=== PATIENT | male | born 1950 | race Caucasian/White ===

== ENCOUNTER 2019-10-09 00:04 | Outpatient (CLI) | payer MEDICARE, SELFPAY ==
[2019-10-09 18:58] LABS: SARS-CoV-2 RNA PCR Negative
== END 2019-10-09 00:05 | disposition home or self-care (01) ==
LOC: ANHCOVIDDT 00:04
PROVIDERS: PCP Family Medicine; Visit Provider Plastic Surgery
DX: Z01.812 Encounter for preprocedural laboratory examination (principal); Z20.828 Contact with and (suspected) exposure to other viral communicable diseases
CPT/HCPCS: 87635; C9803; U0003

== ENCOUNTER 2019-10-11 00:46 | Day surgery (SDC) | payer MEDICARE, SELFPAY ==
[2019-10-04 11:50] VITALS: BMI 22.5
--- NOTE | 2019-10-10 14:08 | HP_ITS ---
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 HISTORY: The patient is 69. He presented with concern for both of these. The nasal lesion is approximately 5 mm in diameter and is brown, firm, crusted and elevated on a slightly fleshy base. No biopsy has been done. A lesion on the clavicle is a healed shave biopsy site at this time. We are scheduling excision of both of these, frozen section will be used on both. He is aware that there will be scarring, may be infection, bruising, hematoma, and pain. He would like to proceed. He has requested MAC anesthetic for this. ALLERGIES: INCLUDES NO KNOWN ALLERGIES TO MEDICATIONS. MEDICATIONS: Current medications include, 1. [id number] Nexium. 2. Finasteride. PRIOR SURGERIES: Include excision of basal cell carcinoma in 2017. He is a nonsmoker. REVIEW OF SYSTEMS: Shows he has some hearing loss and some dry eye problems. FAMILY HISTORY: Noncontributory. SOCIAL HISTORY: Lives in [place]. He is retired, but he worked for [employer]. PHYSICAL EXAMINATION: GENERAL: He is an alert, cooperative gentleman. He is 6 feet 3 inches and weighs 185 pounds. He is in no distress. HEENT: Reveals a lesion on the right side of his nose. There is no palpable adenopathy. He has a surgical scar in his nose from a prior basal cell excision. CHEST: Clear to auscultation. HEART: Regular rate and rhythm by palpation. ABDOMEN: Soft and nontender. EXTREMITIES: Normal. SKIN: Reveals the lesional biopsy site on the left clavicle. 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 PLAN: Excision of both of these in the operating room with MAC anesthetic. Frozen section for both. D I MT: Doris FRY
[2019-10-11 06:56] VITALS: BP 128/75; PULSE 53; RESP 20; TEMP 36.1; O2SAT 100
--- NOTE | 2019-10-11 07:35 | WPDHPUPDATE1 ---
History and Physical Update Update Date/Time: 10/11/19 07:35 History and Physical has been reviewed, including an updated exam of the patient. There are NO changes in the patient's condition. Risks, benefits, and alternatives have been discussed and questions answered. Patient agrees to proceed with procedure.
[2019-10-11] MEDS: LACTATED RINGERS 1,000 ML 30 ML IV CONT ×2 (07:50→11:00)
--- NOTE | 2019-10-11 08:08 | SUR.PREOP ---
0740-PT AWARE SURGEON IS DELAYED ~60 MINUTES BY EMERGENT CASE. [id number] WITH RE:SURGERY DELAY OF ~60 MINUTES.
--- NOTE | 2019-10-11 08:51 | WPDANESEPPF ---
Anes - Initial Pre Proc Eval Procedure: Operation Date: 10/11/19 09:00 Proposed Procedures p Excision Of Neoplasm Unspecified Behavior Right Nose, Excision Of Lesion Left Clavicle With Frozen Section - Uri Scott MD Date/Time: 10/11/19 08:51 Surgeon: Uri Scott MD Pre Op Diagnosis: neoplasm unspecified behavior of right nose, Patient Data Age: 69 Gender: M Height: 6 ft 3 in Weight: 81.35 kg Last Vital Signs Temp 36.1 C L 10/11/19 06:56 Pulse 53 L 10/11/19 06:56 Resp 20 10/11/19 06:56 BP 128/75 10/11/19 06:56 Pulse Ox 100 10/11/19 06:56 Allergies Allergy/AdvReac Type Severity Reaction Status Date / Time No Known Allergies Allergy Unverified 10/11/19 08:04 Home Medications Medication Instructions Recorded Confirmed Type esomeprazole magnesium [Nexium] 20 mg PO HS 10/04/19 10/11/19 History finasteride 5 mg PO HS 10/04/19 10/11/19 History triamcinolone-dimethicone See Rx Instructions .ROUTE .COMPLEX 10/04/19 10/04/19 History Patient hx anesthesia problems: none Family hx anesthesia problems: none PMFSH Social History Social History Smoking status: Former smoker Smoking end date: 05/02/94 Alcohol intake: current Anes - Eval Final PreProcedure Day of Procedure 10/11/19 08:51 Patient weight: normal Heart: regular rate and rhythm Lungs: clear to auscultation Airway: Mallampati scale class II Neurological: alert and oriented Last oral intake: >/= 8 hours ASA classification: II Emergent: no Anesthetic plan: proceed Anesthesia type and monitoring: general GIVS and standard monitoring Informed Consent: The patient's anesthetic plan and its attendant risks and benefits were discussed with the patient/family/POA. Questions were solicited and answers provided to the satisfaction of the patient/family/POA.
[2019-10-11] MEDS: LIDO 1%/EPINEPHRINE 1:100,000 20 ML VIAL 6 ML INFILTRATE (09:49)
--- NOTE | 2019-10-11 10:53 | SUR.OPER ---
EBL:5cc
--- NOTE | 2019-10-11 10:55 | PM.OP ---
Procedure Note - Brief Procedure Note - Brief Date of procedure: 10/11/19 Pre-op diagnosis: neoplasm unspecified behavior of right nose, Neoplasm of unspecified bahavior right nose. Neoplasm of uncertain bahavior left calvicle. Procedure performed: 0.9 cm excisionof neoplasm of right side of nose with FS and intermediate repair 1.5 cm. 1.8 cm excision of neoplasm of left clavicle wieth FS and intermediate repair 4.0 cm. Anesthesia: MAC Surgeon: Uri Scott MD Estimated blood loss (mL): 3 Drains: No Packing: No Pathology: yes Disposition: same day
[2019-10-11 11:00] VITALS: BP 112/63; PULSE 54; RESP 12; O2SAT 99
[2019-10-11 12:10] VITALS: BP 140/71; PULSE 53; RESP 12
--- NOTE | 2019-10-11 12:26 | SUR.PHASEII ---
1220 spoke with spouse and updated on pt condition, on her way here
--- NOTE | 2019-10-11 12:36 | P.OP_ITS ---
Procedure Note - Detailed Date of procedure: 10/11/19 Pre-op diagnosis: neoplasm unspecified behavior of right nose, Neoplasm of uncertain behavior left clavicle Neoplasm of unspecified behavior right side of nose Post-op diagnosis: same Procedure performed: 0.9 cm excision of neoplasm of unspecified behavior right side of nose with frozen section and intermediate repair 1.5 cm 1.8 cm excision of neoplasm of uncertain behavior left clavicle frozen section and intermediate repair 4 cm Description of procedure: The sites were marked on the patient's skin at the left clavicle and right side of nose as he was in the holding area. He was taken to the operating room and placed supine on the operating table. A time- out was held and confirmed and he was given IV sedation. The sites were prepped and draped in usual fashion. They were marked for excision. They were infiltrated with 1% lidocaine with epinephrine. The biopsy site on the left clavicle was faint we identified 2 areas that appeared similar being slightly pink and shiny. These were close together and we encompassed both with a single excision. A suture tag marked the end most near the neck. That tissue was sent to frozen section and the pathologist reports scar but no identifiable tumor. The lesion from the nose was also sent and the diagnosis was similar. The operated site on the left clavicle was closed without undermining it requir ed 4-0 intradermal Vicryl running suture. Glue was applied over that. The site on the right side of the nose was closed with intradermal 4-0 Vicryl and running 5 0 nylon. The patient is discharged home with instructions in wound care and follow-up. No prescriptions were given. Anesthesia: MAC Surgeon: Uri Scott MD
== END 2019-10-11 12:35 | disposition home or self-care (01) ==
PROVIDERS: PCP Family Medicine; Visit Provider Plastic Surgery
PROC: (CPT 11441; principal; 2019-10-11 09:00)
DX: L30.9 Dermatitis, unspecified (principal); L82.1 Other seborrheic keratosis; Z85.828 Personal history of other malignant neoplasm of skin
CPT/HCPCS: 11441; 12051; 11402; 88305; 88331; A9270; J2704; J7120

== ENCOUNTER → 2020-08-08 09:42 | Outpatient (CLI) | payer MEDICARE, SELFPAY ==
--- NOTE | ~2020-08-08 | XR_ITS ---
EXAMINATION: XR_CERV2-3V_CR DATE: 08/08/2020 09:59 INDICATION: Cervical radiculopathy. Left arm weakness. TECHNIQUE: 4 views of cervical spine were obtained. COMPARISON: None. FINDINGS: There is hyperlordosis of lower cervical spine. Vertebral body heights are normal. There is mildly decreased disc height at C5-C6 and C6-C7. There is severe bilateral uncovertebral joint osteo arthritis at C5-C6 and C6-C7. There is multilevel mild facet joint osteoarthritis. There is no centra l canal stenosis or prevertebral soft tissue swelling. IMPRESSION: 1. Mild cervical spondylosis. Reviewed, dictated and finalized at location A.
== END ==
PROVIDERS: PCP Family Medicine; Visit Provider Family Medicine
DX: M47.22 Other spondylosis with radiculopathy, cervical region (principal)
CPT/HCPCS: 72040

== ENCOUNTER → 2021-02-10 13:24 | Outpatient (CLI) | payer MEDICARE, SELFPAY ==
--- NOTE | ~2021-02-10 | XR_ITS ---
XR toe 5th LT min 2V DATE: 02/10/2021 14:02 INDICATION: Left 4th and 5th toe pain TECHNIQUE: 3 views of 5th toe COMPARISON: 03/31/2010 left foot FINDINGS: There is a nondisplaced transverse fracture at the fused distal phalanx of the fifth toe. No other fracture or dislocation. IMPRESSION: Nondisplaced fracture at fused distal phalanx of fifth toe Reviewed, dictated and finalized at location B.
--- NOTE | ~2021-02-10 | XR_ITS ---
XR toe 4th LT min 2V DATE: 02/10/2021 14:02 INDICATION: Left fourth toe pain TECHNIQUE: 3 views COMPARISON: None FINDINGS: No fracture or dislocation, periosteal reaction or bone destruction. IMPRESSION: Negative Reviewed, dictated and finalized at location B. IMPRESSION: Negative
== END ==
PROVIDERS: PCP Family Medicine; Visit Provider Physician Assistant Medical
DX: S92.535D Nondisplaced fracture of distal phalanx of left lesser toe(s), subsequent encounter for fracture with routine healing (principal); X58.XXXD Exposure to other specified factors, subsequent encounter; M79.674 Pain in right toe(s)
CPT/HCPCS: 73660

== ENCOUNTER 2023-03-01 11:23 | Inpatient (IN) | payer MEDICARE, SELFPAY ==
--- NOTE | ~2023-03-01 | CT_ITS ---
EXAMINATION: CT brain wo con DATE: 03/02/2023 09:27 INDICATION: Seizure-like activity. TECHNIQUE: Computed tomography (CT) of the head was performed without intravenous contrast. The mA wa s adjusted according to patient size. Iterative reconstruction technique was employed. The dose-lengt h product was 681.00 mGy-cm. COMPARISON: None FINDINGS: There are scattered areas of low attenuation in the cerebral white matter, which is within normal limits for the patient's age. There is no intracranial hemorrhage, acute infarction, or abnor mal intracranial mass lesion. The ventricles are normal in size. There is mucosal thickening in the p aranasal sinuses. The orbits are normal. The mastoid air cells are normal. There is a lipoma in right frontal lateral scalp. IMPRESSION: 1. Normal aging brain. Reviewed, dictated and finalized at location E. IMPRESSION: 1. Normal aging brain.
--- NOTE | ~2023-03-01 | XR_ITS ---
EXAMINATION: XR chest 1V portable DATE: 03/01/2023 12:55 INDICATION: Fever TECHNIQUE: frontal view of the chest was obtained. COMPARISON: None FINDINGS: Subtle perihilar opacities in the left midlung zone. No pleural effusion or pneumothorax. Calcified r ight hilar lymph node consistent with old granulomatous disease. The cardiomediastinal silhouette is within normal limits for AP technique. IMPRESSION: 1. Subtle left perihilar opacities suspicious for pneumonia. Reviewed, dictated and finalized at location A.
[2023-03-01 11:21] VITALS: BP 131/76; PULSE 88; RESP 20; TEMP 39.6; O2SAT 98
--- NOTE | 2023-03-01 12:09 | ED.FEVER ---
HPI - Fever General Chief Complaint: Fever Stated Complaint: shaking - COVID + Time Seen by Provider: 03/01/23 12:08 Source: family History of Present Illness HPI Narrative: 72 years old white male history of Lewy body dementia, his mental status baseline is oriented to his name only. Tested positive for COVID yesterday, today was shaking too much and possible seizure with temperature 103. His daughter is telling me that patient been having seizure-like activity over 2 weeks, scheduled to see a neurologist at [facility] for EEG next week. Patient is DNR. Related Data Home Medications Medication Instructions Recorded Confirmed cyanocobalamin (vitamin B-12) 1,000 mcg PO DAILY 02/06/20 03/01/23 1,000 mcg capsule bimatoprost 0.01 % eye drops 1 drp EACH EYE DAILY 03/01/23 03/01/23 (Lumigan) melatonin 10 mg tablet 10 mg PO HS 03/01/23 03/01/23 quetiapine 25 mg tablet (Seroquel) 50 mg PO HS 03/01/23 03/01/23 sildenafil 100 mg tablet 100 mg PO DAILY PRN as needed 03/01/23 03/01/23 Allergies Allergy/AdvReac Type Severity Reaction Status Date / Time No Known Allergies Allergy Verified 03/01/23 11:57 Review of Systems Review of Systems: ROS unobtainable: Yes unobtainable due to mental status PMFSH Past Medical History Medical History Benign prostate hyperplasia COVID-19 Gastroesophageal reflux disease 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 Code status: Do not resuscitate. Smoking status: Former smoker Alcohol intake: never Substance use: current Substance use type: does not use Lack of Transportation: No Lack of Food: Never True Current Housing: I Have Housing Concerned About Future Housing: No Difficulty Paying Gas/Electric Bills: No Difficulty Paying for Meds: No Currently Unemployed: No Education: Master's Degree or Higher Additional living arrangements comments: [facility]. Additional occupation/education comments: Retired. Spiritual care concerns: No Exam Narrative: General appearance: Well-developed, well-nourished, restless, daughter is at the bedside Skin: Normal color, warm Head: Normocephalic, nontraumatic Eyes: Clear conjunctiva ENT: Oropharyngeal erythema Neck: Supple, nontender Chest and respiratory: Airway patent, no respiratory distress, no accessory muscle use Heart: Regular rate/rhythm Abdomen: Soft, nontender, no organomegaly, quiet bowel sounds Vascular: Normal peripheral pulses, normal capillary refill. Musculoskeletal: Normal range of motion, nontender back Neurologic: Alert and oriented to his name only Course Reevaluation(s) Reevaluation #1: More relaxed and calm after Tylenol, Toradol and IV fluid Date: 03/01/23 Time: 13:36 Vital Signs Vital signs: Vital Signs Temperature 39.6 C H 03/01/23 11:21 Pulse Rate 88 03/01/23 11:21 Respiratory Rate 20
--- NOTE | 2023-03-01 12:10 | ECG_ITS ---
Measurements Intervals [place] Rate: 91 P: 74 [place]: 147 QRS: 1 QRSD: 101 T: 40 QT: 352 QTc: 434 Interpretive Statements SINUS RHYTHM SUPRAVENTRICULAR BIGEMINY INCOMPLETE RIGHT BUNDLE BRANCH BLOCK BORDERLINE R WAVE PROGRESSION, ANTERIOR LEADS BASELINE ARTIFACT- I, II, III, AVR, AVL, AVF ABNORMAL ECG NO PREVIOUS ECG AVAILABLE FOR COMPARISON Electronically Signed On 03-02-2023 6:34:28 CDT by Marco Romo D.O.
[2023-03-01] MEDS: ACETAMINOPHEN 500 MG TABLET 1000 MG PO (12:32)
[2023-03-01] MEDS: SODIUM CHLORIDE 0.9% IV 1,000 ML 999 ML IV CONT (12:32)
[2023-03-01] MEDS: KETOROLAC 15 MG/ML VIAL (*BKC) IV PUSH (12:33)
[2023-03-01 12:44] LABS: Basophils Percent Auto 0.2 % (0.2-1.2); Eosinophils Percent Auto 0.1 % (0-4.4); Hematocrit 42.2 % (42.0-52.0); Hemoglobin 14.6 g/dL (14.0-18.0); Immature Granulocyte Absolute 0.01 K/mm3 (0.00-0.031); Immature Granulocyte Percent A 0.1 % (0-0.5); Lymphocytes Absolute Auto 0.42 K/mm3 (0.9-3.2); Lymphocytes Percent Auto 5.1 % (18.3-44.2); Mean Corpuscular HGB Conc 34.6 g/dl (32-36); Mean Corpuscular Hemoglobin 31.5 pg (26-34); Mean Corpuscular Volume 91.1 fl (80-100); Mean Platelet Volume 9.8 fl (7.4-10.4); Monocytes Absolute Auto 0.5 K/mm3 (0.1-0.6); Monocytes Percent Auto 5.7 % (2.6-8.5); Neutrophils Absolute Auto 7.3 K/mm3 (1.3-6.7); Neutrophils Percent Auto 88.8 % (45.5-73.1); Platelet Count Result 179 k/mm3 (150-375); Red Blood Count 4.63 M/mm3 (4.6-6.20); Red Cell Distribution Width 12.9 % (11.5-14.5); White Blood Count 8.2 K/mm3 (4.5-10.0)
[2023-03-01 12:55] LABS: Lactic Acid Reflex 1.6 mmol/L (0.7-2.0)
[2023-03-01 12:56] LABS: INR 0.9; Partial Thromboplastin Time 23.6 SECONDS (22.3-36.8); Prothrombin Time 12.7 Seconds (11.1-14.7)
[2023-03-01 12:59] LABS: Alanine Aminotransferase 31 U/L (6-50); Alkaline Phosphatase 77 U/L (38-126); Anion Gap 5 mmol/L (8-16); Aspartate Amino Transferase 41 U/L (17-59); Bilirubin,Total 1.2 mg/dL (0.2-1.3); Blood Urea Nitrogen 18 mg/dL (9-20); CRP 3.1 mg/dL (<1.0); Calcium 8.6 mg/dL (8.4-10.2); Carbon Dioxide 28 mmol/L (22-30); Chloride 100 mmol/L (98-107); Estimated CRCL calculation 87 ml/min; Estimated Glomerular Filt Rate > 60; Glucose 93 mg/dL (65-110); Potassium 4.1 mmol/L (3.4-5.0); Sodium 133 mmol/L (137-145)
[2023-03-01 13:30] VITALS: BP 127/67; PULSE 82; RESP 20; O2SAT 95
[2023-03-01 13:59] VITALS: PULSE 80; RESP 18; TEMP 37.9; O2SAT 97
[2023-03-01 14:34] LABS: Influenza A QL RT-PCR Negative (Negative); Influenza B QL RT-PCR Negative (Negative); RSV RNA, RT-PCR Negative (Negative); SARS-CoV-2 RNA PCR Positive (Negative)
--- NOTE | 2023-03-01 17:23 | ADMGEN ---
This patient, Bubba Finney, was admitted to Medical Room 340-01. Patient/family oriented to hospital policies and general routines including ID bracelet, bed and alarms, visiting hours, pain management, procedures, bathroom and other care routines, personal items, smoking policy, room service/diet, and visiting hours. Information on how to activate the Rapid Response Team has been discussed. Patient/Family are encouraged to report perceived risks to care and to ask questions if they do not understand what they are told or what they should do.
[2023-03-01 17:30] VITALS: BP 102/50; PULSE 70; RESP 18; TEMP 36.8; O2SAT 100
[2023-03-01] MEDS: SODIUM CHLORIDE 0.9% IV 1,000 ML 125 ML IV CONT (18:03)
[2023-03-01 20:00] VITALS: PULSE 62
--- NOTE | 2023-03-01 20:41 | PM.IMHP ---
H&P: HPI History of Present Illness Date/Time: 03/01/23 20:40 Chief Complaint: Shaking, fever, COVID. Narrative: This is a 72-year-old male with Lewy body dementia who presented to the emergency department via EMS from assisted living for evaluation shaking episodes and fever while COVID positive. He is not able to provide an accurate history and his daughter provides a majority of the following. Over the weekend he seemed to be in his usual state of health. Yesterday he was tested for COVID as is going around the facility and he tested positive though did not seem to be feeling unwell. Today however he spiked a temperature to 103? F and he was brought into the emergency department after staff noticed his legs buckle and he appeared to have a near fall. At that time he also had full body shaking concerning for seizure activity and they thought it would be best to send him to the ER for evaluation as the last several weeks he has had similar other episodes and they were concerned for possible seizures. In fact he has an upcoming appointment with his neurologist at [facility] for an EEG however that is not for another several weeks. Blood pressure has been stable since arrival. His SpO2 has been in the mid to high 90s on room air. He did test positive for SARS-CoV-2 by PCR. Labs were significant for a WBC count of 8.2, sodium 133, CRP 3.1. Chest x-ray shows subtle left perihilar opacity suspicious for pneumonia. I was asked to admit the patient in this setting for neurology consultation. Review of Systems Review of Systems: Unable to be obtained accurately given his dementia. He has had some sneezing while I was in the room. Daughter is unaware of any cough. Appetite has been okay. No reports of vomiting or diarrhea. 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 Code status: Do not resuscitate. Smoking status: Former smoker Alcohol intake: never Substance use: current Substance use type: does not use Lack of Transportation: No Lack of Food: Never True Current Housing: I Have Housing Concerned About Future Housing: No Difficulty Paying Gas/Electric Bills: No Difficulty Paying for Meds: No Currently Unemployed: No Education: Master's Degree or Higher Additional living arrangements comments: [facility]. Additional occupation/education comments: Retired. Spiritual care concerns: No Meds Home Medications and Allergies Home Medications Medication Instructions Recorded Confirmed Type cyanocobalamin (vitamin B-12) 1,000 mcg PO DAILY 02/06/20 03/01/23 History 1,000 mcg capsule Compression support stockings #1 ea 08/30/22 03/01/23 Rx rivastigmine 4.6 mg/24 hour 1 patch transdermal DAILY #30 ea 10/21/22 03/01/23 Rx transdermal patch clonazepam 0.5 mg tablet 0.25 mg PO QHS #90 tabs 11/08/22 03/01/23 Rx esomeprazole magnesium 20 mg 20 mg PO QHS #30 ea 02/24/23 03/01/23 Rx capsule,delayed release finasteride 5 mg tablet 5 mg PO QHS #30 tabs 02/24/23 03/01/23 Rx sertraline 100 mg tablet 100 mg PO DA
[2023-03-01 21:38] VITALS: BP 97/52; PULSE 60; RESP 18; TEMP 36.4; O2SAT 97
[2023-03-01] MEDS: KETOROLAC 30 MG/ML VIAL (*BKC) 15 MG IV PUSH (22:30)
[2023-03-02] VITALS: PULSE 65
[2023-03-02 00:58] LABS: Appearance Urine Clear (Clear); Bilirubin Urine Negative (Negative); Blood Urine Negative (Negative); Color Urine Dark Yellow (Yellow); Glucose Urine UA Negative (Negative); Ketones Urine Trace mg/dL (Negative); Leukocyte Esterase Ur Negative LEU/UL (Negative); Nitrate Urine Negative (Negative); Protein Urine Negative (Negative); Specific Grav Ur 1.026 (1.001-1.035)
[2023-03-02 01:13] LABS: Add Urine Microscopic? NO
[2023-03-02] MEDS: SODIUM CHLORIDE 0.9% IV 1,000 ML 125 ML IV CONT (02:05)
[2023-03-02 04:00] VITALS: PULSE 77
[2023-03-02 05:40] LABS: Hemoglobin 12.8 g/dL (14.0-18.0); Mean Corpuscular HGB Conc 33.7 g/dl (32-36); Mean Corpuscular Hemoglobin 31.4 pg (26-34); Mean Corpuscular Volume 93.4 fl (80-100); Mean Platelet Volume 9.4 fl (7.4-10.4); Platelet Count Result 166 k/mm3 (150-375); Red Blood Count 4.07 M/mm3 (4.6-6.20); Red Cell Distribution Width 13.1 % (11.5-14.5); White Blood Count 7.8 K/mm3 (4.5-10.0)
[2023-03-02 05:56] LABS: Alanine Aminotransferase 29 U/L (6-50); Alkaline Phosphatase 62 U/L (38-126); Anion Gap 1 mmol/L (8-16); Aspartate Amino Transferase 40 U/L (17-59); Blood Urea Nitrogen 19 mg/dL (9-20); CRP 6.7 mg/dL (<1.0); Calcium 7.8 mg/dL (8.4-10.2); Carbon Dioxide 27 mmol/L (22-30); Chloride 107 mmol/L (98-107); Estimated CRCL calculation 87 ml/min; Estimated Glomerular Filt Rate > 60; Glucose 91 mg/dL (65-110); Lactate Dehydrogenase 170 U/L (120-246); Sodium 135 mmol/L (137-145)
[2023-03-02 06:00] VITALS: BP 150/74; PULSE 55; RESP 21; TEMP 36.6; O2SAT 100
[2023-03-02] MEDS: SERTRALINE HCL 50 MG TABLET 100 MG PO (08:36)
[2023-03-02] MEDS: TAMSULOSIN HCL 0.4 MG CAPSULE PO (08:36)
[2023-03-02] MEDS: CYANOCOBALAMIN 1,000 MCG TABLET 1000 MCG PO (08:36)
[2023-03-02 08:45] VITALS: BP 160/87; PULSE 60; RESP 20; TEMP 36.8; O2SAT 100
--- NOTE | 2023-03-02 09:06 | PM.IMPN ---
Progress Note: A&P Assessment and Plan (1) COVID-19: Code(s): U07.1 - COVID-19 Status: Acute (2) Seizure-like activity: Code(s): R56.9 - Unspecified convulsions Status: Acute (3) Abnormal chest x-ray: Code(s): R93.89 - Abnormal findings on diagnostic imaging of other specified body structures Status: Acute (4) Lewy body dementia with behavioral disturbance: Code(s): G31.83 - Neurocognitive disorder with Lewy bodies; F02.81 - Dementia in other diseases classified elsewhere, unspecified severity, with behavioral disturbance Status: Acute Plan The patient presented to the emergency department via EMS for evaluation of fever and a ?shaking episode? which lasted upwards of a minute as per HPI. Labs, imaging, EKG, and all reports were personally reviewed. He has no history of seizures but over the last several weeks he has apparently demonstrated seizure-like activity. Brain CT has been ordered and neurology has been consulted for their opinion. Regarding his COVID, he has no oxygen requirement thus no indication for dexamethasone or remdesivir at this time. Chest x-ray shows possible pneumonia in the left lobe which could be related to COVID. White blood cell count is normal and his CRP is only mildly elevated 3.1. Hold on antibiotics at this time, pending procalcitonin. He looks a bit dry on exam and will be hydrated overnight. His home medications will be reviewed and resumed as appropriate. Subjective Date/time seen: 03/02/23 09:06 Interval history: No overnight events noted. No chest pain or shortness of breath. No nausea, vomiting or diarrhea. No fevers or chills. Review of Systems Review of Systems: 12 point review of systems was assessed and was negative except as noted in the HPI Exam Narrative: General: No acute distress, alert and oriented per baseline HEENT: Atraumatic, normocephalic, mucous membranes moist CV: Regular rate and rhythm, S1, S2 Lungs: Clear to auscultation bilaterally, no rales or crackles noted, no wheezes, good air entry Abdomen: Soft, nontender, nondistended Extremities: Normal to inspection Skin: No rashes noted, no lesions or wounds seen Psych: Euthymic, normal affect Objective Data Vital Signs Vital Signs: Vital Signs - 24 hr 03/01/23 11:21 03/01/23 13:30 03/01/23 13:59 Temperature 103.2 F H 100.2 F H Pulse Rate 88 82 80 Respiratory Rate 20 20 18 Blood Pressure 131/76 127/67 Pulse Oximetry 98 95 97 Oxygen Delivery Room Air 03/01/23 17:30 03/01/23 21:38 03/01/23 20:00 Temperature 98.2 F 97.5 F L Pulse Rate 70 60 62 Respiratory Rate 18 18 Blood Pressure 102/50 L 97/52 L Pulse Oximetry 100 97 Oxygen Delivery 03/02/23 00:00 03/02/23 04:00 03/02/23 06:00 Temperature 97.9 F Pulse Rate 65 77 55 L Respiratory Rate 21 H Blood Pressure 150/74 H Pulse Oximetry 100 Oxygen Delivery 03/02/23 08:45 Temperature 98.2 F Pulse Rate 60 Respiratory Rate 20 Blood Pressure 160/87 H Pulse Oximetry 100 Oxygen Delivery Intake/Output Intake/Output: Intake & Output 02/27/23 02/28/23 03/01/23 03/02/23 23:59 23:59 23:59 23:59 Intake Total 1240 1400 Output Total 350 Balance 1240 1050 Meds/Results Medications: Active Medications Generic Name Dose Route Start Last Admin Trade Name Freq PRN Reason Stop Dose Admin Acetaminophen 650 mg 03/01/23 13:42 Acetaminophen 325 Mg Tablet PO Q4H PRN Mild Pain (1-3) or Fever Clonazepam 0.25 mg 03/02/23 21:00 Clonazepam (*Crx) 0.25 Mg Tablet PO QHS NADJA Cyanocobalamin 1,000 mcg 03/02/23 09:00 03/02/23 08:36 Cyanocobalamin 1,000 Mcg Tablet PO 1,000 mcg DAILY NADJA Administration Finasteride 5 mg 03/02/23 21:00 Finasteride 5 Mg Tablet PO QHS NADJA Sodium Chloride 1,000 mls @ 125 mls/hr 03/01/23 13:50 03/02/23 02:05 Normal Saline Iv IV CONT 125 mls/hr .Q8H NADJA Administration Ket
--- NOTE | 2023-03-02 11:18 | WPDNEURCNPN ---
Assessment and Plan Assessment and plan (1) Lewy body dementia with behavioral disturbance: Code(s): G31.83 - Neurocognitive disorder with Lewy bodies; F02.81 - Dementia in other diseases classified elsewhere, unspecified severity, with behavioral disturbance Status: Acute (2) Seizure-like activity: Code(s): R56.9 - Unspecified convulsions Status: Acute Plan 1. Ongoing dementia of Lewy body type. 2. Question regarding seizures is scheduled to have the EEG here today over the next several weeks 3 medication to be continued as such and discussed with the family Consult date: 03/02/23 HPI: Bubba Finney is a 72 year old maleAdmitted to the hospital through the emergency room for the complains of shaking in addition to history covid positive. Patient carries the diagnosis of Lewy body dementia with his mental status baseline is orientation to his name only he tested positive yesterday for covid and the day of admission he was shaking too much with the possibility of seizures with temperature being 103. But the daughter mentioned to the ER personnel that he has been experiencing seizure-like activity over more than 2 weeks. And was scheduled to see the neurologist at [facility] to have the EEG next week and he also carries the DNR status his medications included only B12 1000 mcg/ml and he is not allergic to any medication. He does have ongoing history of benign prostatic hyperplasia, is currently alcohol intake positive but he is a former smoker initial exam in the emergency room was grossly nonfocal though he was alert and oriented to his name only. Initial vital signs were stable except temperature of 39.6? 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 Code status: Do not resuscitate. Smoking status: Former smoker Alcohol intake: never Substance use: current Substance use type: does not use Lack of Transportation: No Lack of Food: Never True Current Housing: I Have Housing Concerned About Future Housing: No Difficulty Paying Gas/Electric Bills: No Difficulty Paying for Meds: No Currently Unemployed: No Education: Master's Degree or Higher Additional living arrangements comments: [facility]. Additional occupation/education comments: Retired. Spiritual care concerns: No Meds Home Medications and Allergies Home Medications Medication Instructions Recorded Confirmed Type cyanocobalamin (vitamin B-12) 1,000 mcg PO DAILY 02/06/20 03/01/23 History 1,000 mcg capsule Compression support stockings #1 ea 08/30/22 03/01/23 Rx rivastigmine 4.6 mg/24 hour 1 patch transd
[2023-03-02] MEDS: levETIRAcetam 500 MG TABLET PO (12:46)
[2023-03-02 14:35] VITALS: BP 141/72; PULSE 78; RESP 16; TEMP 37; O2SAT 100
--- NOTE | 2023-03-02 14:49 | PM.DS ---
DS: Admitting Diagnosis Discharge Date 03/02/23 Admitting Diagnosis Seizure DS: Discharge Diagnosis Discharge Diagnosis (1) COVID-19: Code(s): U07.1 - COVID-19 Status: Acute (2) Seizure-like activity: Code(s): R56.9 - Unspecified convulsions Status: Acute (3) Abnormal chest x-ray: Code(s): R93.89 - Abnormal findings on diagnostic imaging of other specified body structures Status: Acute (4) Lewy body dementia with behavioral disturbance: Code(s): G31.83 - Neurocognitive disorder with Lewy bodies; F02.81 - Dementia in other diseases classified elsewhere, unspecified severity, with behavioral disturbance Status: Acute Plan The patient presented to the emergency department via EMS for evaluation of fever and a ?shaking episode? which lasted upwards of a minute as per HPI. Labs, imaging, EKG, and all reports were personally reviewed. He has no history of seizures but over the last several weeks he has apparently demonstrated seizure-like activity. Brain CT has been ordered and neurology has been consulted for their opinion. Regarding his COVID, he has no oxygen requirement thus no indication for dexamethasone or remdesivir at this time. Chest x-ray shows possible pneumonia in the left lobe which could be related to COVID. White blood cell count is normal and his CRP is only mildly elevated 3.1. Hold on antibiotics at this time, pending procalcitonin. He looks a bit dry on exam and will be hydrated overnight. His home medications will be reviewed and resumed as appropriate. DS: Summary Hospital Course Hospital Course: 72-year-old male with Lewy body dementia who presented to the emergency department via EMS from assisted living for evaluation shaking episodes and fever while COVID positive. Long discussion with the son patient is the resident at the [facility] sees trying to schedule him for the ambulatory EEG if he goes back from here to the [facility] and has another episode they will again send him to the and [facility] but not to the [facility], considering all this pros and cons I started him on the Keppra 500 mg twice a day with instruction to the side can be discharged today to the [facility] he can keep a scheduled appointment at [facility] for ambulatory EEG because otherwise [facility] will only sent him to the local facility to the ER he understood? satisfied and patient will be discharged today. Symptoms do not recur. Patient was discharged in stable condition with close outpatient follow-up. Please see above and med rec for details. Time Spent with Patient Time attestation: Total time spent providing and/or coordinating discharge services: Exam Narrative: General: No acute distress, alert and oriented per baseline HEENT: Atraumatic, normocephalic, mucous membranes moist CV: Regular rate and rhythm, S1, S2 Lungs: Clear to auscultation bilaterally, no rales or crackles noted, no wheezes, good air entry Abdomen: Soft, nontender, nondistended Extremities: Normal to inspection Skin: No rashes noted, no lesions or wounds seen Psych: Euthymic, normal affect DS: Data Data Completed and Pending Labs on day of discharge: Labs from last 24 hours 03/02/23 03/02/23 05:34 00:46 WBC 7.8 RBC 4.07 L Hgb 12.8 L Hct 38.0 L MCV 93.4 MCH 31.4 MCHC 33.7 RDW 13.1 Plt Count 166 MPV 9.4 Sodium 135 L Potassium 4.0 Chloride 107 Carbon Dioxide 27 Anion Gap 1 L BUN 19 Creatinine 0.80 Estim Creat Clear Calc 87 Estimated GFR > 60 Glucose 91 Calcium 7.8 L Ferritin 127.00 Total Bilirubin 1.0 AST 40 ALT 29 Alkaline Phosphatase 62 Lactate Dehydrogenase 170 C-Reactive Protein 6.7 H Total Protein 5.0 L Albumin 3.0 L Urine Color Dark yellow Urine Appearance Clear Urine pH 6.0 Ur Specific [place] 1.026 Urine Protein Negative Urine Glucose (UA) Negative Urine [place]
--- NOTE | 2023-03-02 15:33 | WPDNEUROLOGY ---
Neurology EEG Report General Information Date of Study: 03/02/23 TEST eeg DIAGNOSIS Seizure-like activity CONDITION OF RECORDING awake drowsy and sleep EEG NUMBER [id number] CLINICAL HISTORY patient has ongoing dementia of Lewy bodies type, and question has been raised regarding the possibility of seizures , patient is scheduled to return to his neurologist at [facility] were planning to have ambulatory EEG. EEG DESCRIPTION Background rhythm consists of low to medium voltage 6 to 7 hertz per 2nd theta admixed and superimposed by low-voltage 15 to 18 hertz per 2nd beta activity. Bilateral symmetrical sleep activity is noted without any evidence of asymmetry. In addition to the multiple movement artifacts. Hyperventilation not done. Photic stimulation not done. Non paroxysmal. Nonfocal. Nonlateralizing. IMPRESSION Mildly abnormal record due to the presence of slowing of the background rhythm but there is no evidence of any paroxysmal activity in this particular tracing which is somewhat compromised by the multiple muscle artifacts as well.
== END 2023-03-02 15:15 | disposition other institution (70) | DRG 100 ==
LOC: ANHED 13:42 → ANH3MEDSUR 14:30 → ANH3MED 16:14
PROVIDERS: Admitting Provider Physician Assistant; Emergency Provider Emergency Medicine; PCP Family Medicine; Visit Provider Student in an Organized Health Care Education/Training Program
DX: R56.9 Unspecified convulsions (principal); U07.1 COVID-19; G31.83 Neurocognitive disorder with Lewy bodies; F02.80 Dementia in other diseases classified elsewhere, unspecified severity, without behavioral disturbance, psychotic disturbance, mood disturbance, and anxiety; N40.0 Benign prostatic hyperplasia without lower urinary tract symptoms; L11.1 Transient acantholytic dermatosis [Grover]; K21.9 Gastro-esophageal reflux disease without esophagitis; Z66 Do not resuscitate
CPT/HCPCS: 36415; 70450; 71045; 80053; 81003; 82728; 83605; 83615; 85025; 85027; 85610; 85730; 86140; 87040; 87637; 93005; 95816; 96361; 96374; 99285; A9270; J1885; J7030

== ENCOUNTER 2024-03-04 23:38 | Emergency (ER) | payer MEDICARE, SELFPAY ==
--- NOTE | ~2024-03-04 | CT_ITS ---
CT head without contrast Indication: Head injury COMPARISON: 123 Technique: Serial scans were obtained through the brain without the administration of contrast. Dose reduction technique was used on this scan by utilizing automated exposure control and iterative recon struction technique. The dose-length product (DLP) was 756.67 mGy-cm. Findings: There is no evidence of intracranial hemorrhage, mass lesion, or acute infarct. The ventri cles and subarachnoid spaces are dilated, consistent with mild to moderate atrophy. There is no evid ence of edema, mass effect or midline shift. The visualized paranasal sinuses and mastoid air cells are clear. Impression: No intracranial hemorrhage, mass, or acute infarct. Generalized atrophic change, as above. Reviewed, dictated and finalized at location . GATIONIST Impression: No intracranial hemorrhage, mass, or acute infarct. Generalized atrophic change, as above.
--- NOTE | ~2024-03-04 | CT_ITS ---
Noncontrast CT scan of the cervical spine Technique: Multiple contiguous axial [address] images of the cervical spine were obtained and rec onstructed in 2D sagittal and coronal planes on the acquisition scanner. Dose reduction technique was used on this scan by utilizing automated exposure control, adjustment of the mA and/or kV according to patient size. The dose-length product (DLP) was 571.19 mGy-cm. Clinical History: Pain Findings: No fractures or dislocations. There is moderate to advanced degenerative disc change at C6 -C7. There is moderate degenerative disc narrowing at C5-C6. There are scattered mild facet joint deg enerative change in the cervical spine. Probable bilateral neural foraminal narrowing at C5-C6 and C6 -C7. No prevertebral soft tissue swelling. Impression: No fracture or subluxation of the cervical spine. Reviewed, dictated and finalized at [facility]. WIRER Impression: No fracture or subluxation of the cervical spine.
--- NOTE | ~2024-03-04 | XR_ITS ---
Left ankle Technique: AP, oblique, and lateral views were obtained. Clinical History: Pain Findings: No acute fracture or dislocation is seen. Osseous alignment is anatomic. Ankle mortise and other visualized joint spaces are preserved. Soft tissues are otherwise unremarkable. Impression: Unremarkable left ankle. Reviewed, dictated and finalized at location . MECHANIC APPRENTICE Impression: Unremarkable left ankle.
[2024-03-04 23:41] VITALS: BP 183/86; PULSE 61; RESP 17; TEMP 36.6; O2SAT 100
--- NOTE | 2024-03-05 00:50 | ECG_ITS ---
Test Date: 2024-03-05 01:00:01 Measurements Intervals [place] Rate: 57 P: 53 IA: 153 QRS: 18 QRSD: 108 T: 30 QT: 450 QTc: 439 Interpretive Statements SINUS BRADYCARDIA INCOMPLETE RIGHT BUNDLE BRANCH BLOCK DELAYED PRECORDIAL R/S TRANSITION BASELINE ARTIFACT- AVL, AVF, V3 BORDERLINE ECG No previous ECG available for comparison Electronically Signed On 03-05-2024 05:54:45 RELIEF CHARGE NURSE by Marco Romo D.O.
[2024-03-05 01:06] LABS: Basophils Percent Auto 0.6 % (0.2-1.2); Eosinophils Absolute Auto 0.1 K/mm3 (0-0.3); Eosinophils Percent Auto 1.8 % (0-4.4); Hematocrit 41.9 % (42.0-52.0); Immature Granulocyte Absolute 0.02 K/mm3 (0.00-0.031); Immature Granulocyte Percent A 0.3 % (0-0.5); Lymphocytes Absolute Auto 1.97 K/mm3 (0.9-3.2); Lymphocytes Percent Auto 29.9 % (18.3-44.2); Mean Corpuscular HGB Conc 33.4 g/dl (32-36); Mean Corpuscular Hemoglobin 31.7 pg (26-34); Mean Platelet Volume 9.4 fl (7.4-10.4); Monocytes Absolute Auto 0.6 K/mm3 (0.1-0.6); Monocytes Percent Auto 8.5 % (2.6-8.5); Neutrophils Absolute Auto 3.9 K/mm3 (1.3-6.7); Neutrophils Percent Auto 58.9 % (45.5-73.1); Platelet Count Result 206 k/mm3 (150-375); Red Blood Count 4.41 M/mm3 (4.6-6.20); Red Cell Distribution Width 13.1 % (11.5-14.5); White Blood Count 6.6 K/mm3 (4.5-10.0)
[2024-03-05 01:19] LABS: Alanine Aminotransferase 27 U/L (6-50); Albumin Level 3.5 g/dL (3.5-5.1); Alkaline Phosphatase 63 U/L (38-126); Anion Gap 6 mmol/L (4-12); Aspartate Amino Transferase 32 U/L (17-59); Bilirubin,Total 0.8 mg/dL (0.2-1.3); Blood Urea Nitrogen 28 mg/dL (9-20); Calcium 8.4 mg/dL (8.4-10.2); Carbon Dioxide 28 mmol/L (22-30); Chloride 106 mmol/L (98-107); Estimated CRCL calculation 84 ml/min; Estimated Glomerular Filt Rate > 60; Glucose 88 mg/dL (65-110); Sodium 140 mmol/L (137-145)
--- NOTE | 2024-03-05 01:21 | ED.GENADULT ---
HPI - General Adult General Chief complaint: Head Injury Stated complaint: HEAD LAC S/P GLF Time Seen by Provider: 03/05/24 00:41 History of Present Illness HPI narrative: Patient 73-year-old gentleman who presents from a local memory care facility with chief complaint of fall patient had an unwitnessed fall at the nursing facility is unsure of our why he fell patient is baseline alert oriented x1 has a small abrasion to his forehead history is limited due to Lewy body dementia Related Data Home Medications Medication Instructions Recorded Confirmed sildenafil 100 mg tablet 100 mg PO DAILY PRN as needed 03/01/23 03/01/23 Allergies Allergy/AdvReac Type Severity Reaction Status Date / Time No Known Allergies Allergy Verified 03/04/24 23:48 Review of Systems Review of Systems: A 10 system review of systems was completed on the patient and is negative except for what is stated in the HPI. Nursing and ancillary documentation was reviewed. COUNTS INCLUDE 234 BEDS AT THE [facility] Past Medical History Medical History Benign prostate hyperplasia COVID-19 Gastroesophageal reflux disease 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 Code status: Do not resuscitate. Smoking status: Former smoker Alcohol intake: never Substance use: current Substance use type: does not use Lack of Transportation: No Lack of Food: Never True Current Housing: I Have Housing Concerned About Future Housing: No Difficulty Paying Gas/Electric Bills: No Difficulty Paying for Meds: No Currently Unemployed: No Education: Master's Degree or Higher Additional living arrangements comments: [facility]. Additional occupation/education comments: Retired. Spiritual care concerns: No Exam Narrative: GENERAL: Well-appearing, well-nourished, and in no acute distress. HEAD: Normocephalic, abrasion present a forehead. EYES: PERRLA and EOMI. ENT: Nares clear, no rhinorrhea or epistaxis. Mucous membranes moist. NECK: Supple. CHEST: Clear to auscultation. No respiratory distress. HEART: Regular rate and rhythm. No murmur heard. Normal peripheral pulses. ABDOMEN: Soft, nontender, nondistended, normal active bowel sounds. EXTREMITIES: Normal range of motion there is a small abrasion present to the left ankle. No edema. SKIN: Warm, dry, no rash. NEURO: No focal deficits. Alert and pleasantly confused. PSYCH: Normal mood and affect. Course Vital Signs Vital signs: Vital Signs Temperature 36.6 C 03/04/24 23:41 Pulse Rate 61 03/04/24 23:41 Respiratory Rate 17 03/04/24 23:41 Blood Pressure 183/86 H 03/04/24 23:41 Pulse Oximetry 100 03/04/24 23:41 Oxygen Delivery Room Air 03/04/24 23:41 Temperature 36.6 C 03/04/24 23:41 Pulse Rate 59 L 03/05/24 02:17 Respiratory Rate 18 03/05/24 02:17 Blood Pressure 158/88 H 03/05/24 02:17 Pulse Oximetry 100 03/05/24 02:17 Oxygen Delivery Room Air 03/04/24 23:41 Medical Decision Making MDM Narrative Medical decision making narrative: differential diagnosis includes head injury, intracranial hemorrhage, cervical spine fracture, ankle fracture plain film x-rays of the ankle showed no evidence of fracture CT head CT C-spine showed no evidence of intracranial hemorrhage or cervical spine fracture. Vital Signs Vital Signs: Vital Signs Temperature 36.6 C 03/04/24 23:41 Pulse Rate 61 03/04/24 23:41 Respiratory Rate 17 03/04/24 23:41 Blood Pressure 183/86 H 03/04/24 23:41 Pulse Oximetry 100 03/04/24 23:41 Oxygen Delivery Room Air 03/04/24 23:41 Temperature 36.6 C 03/04/24 23:41 Pulse Rate 59 L 03/05/24 02:17 Respiratory Rate 18 03/05/24 02:17 Blood Pressure 158/88 H 03/05/24 02:17 Pulse Oximetry 100 03/05/24 02:17 Oxygen Delivery Room Air 03/04/24 23:41 Lab Data 03/05/24 01:00 03/05/24 01:00 Labs: Lab Results 03/05/24 Range/Units 01:00 WBC 6.6 (4.5-10.0) K/mm3 RBC 4.41 L (4.6-6.20) M/mm3 Hgb 14.0 (14.0-18.0) g/dL Hct 41.9 L (42.0-52.0) % MCV 95.0 (80-100) fl MCH 31.7 (26-34) pg MCHC 33.4 (32-36) g/dl RDW 13.1 (11.5-14.5) % Plt Count 206 (150-375) k/mm3 MPV 9.4 (7.4-10.4) fl Immature Gran % (Auto) 0.3 (0-0.5) % Neut % (Auto) 58.9 (45.5-73.1) % Lymph % (Auto) 29.9 (18.3-44.2) % [place] % (Auto) 8.5 (2.6-8.5) % Eos % (Auto) 1.8 (0-4.4) % Baso % (Auto) 0.6 (0.2-1.2) % Lymph # (Auto) 1.97 (0.9-3.2) K/mm3 [place] # (Auto) 0.6 (0.1-0.6) K/mm3 Eos # (Auto) 0.1 (0-0.3) K/mm3 Baso # (Auto) 0.0 (0.0-0.1) K/mm3 Abs Immat Gran (auto) 0.02 (0.00-0.031) K/mm3 Absolute Neuts (auto) 3.9 (1.3-6.7) K/mm3 Absolute Nucleated RBC 0.000 (0.0-0.012) K/mm3 Nucleated RBC % 0.0 (0.0-0.2) % Sodium 140 (137-145) mmol/L Potassium 4.0 (3.4-5.0) mmol/L Chloride 106 (98-107) mmol/L Carbon Dioxide 28 (22-30) mmol/L Anion Gap 6 (4-12) mmol/L BUN 28 H (9-20) mg/dL Creatinine 0.80 (0.7-1.3) mg/dL Estim Creat Clear Calc 84 ml/min Estimated GFR > 60 (59 - ) Glucose 88 (65-110) mg/dL Calcium 8.4 (8.4-10.2) mg/dL Total Bilirubin 0.8 (0.2-1.3) mg/dL AST 32 (17-59) U/L ALT 27 (6-50) U/L Alkaline Phosphatase 63 (38-126) U/L Total Protein 6.0 L (6.3-8.2) g/dL Albumin 3.5 (3.5-5.1) g/dL Discharge Plan Discharge Clinical Impression: Fall from ground level, Head injury, Abrasion head Patient Disposition: [facility] Condition: Stable Instructions: Antibiotic Form, Head Injury (ED), Abrasion (ED) Prescriptions: No Action (DME) Compression support stockings See Rx Instructions .Route .MEDSUPPLY Qty: 1 0RF Rx Instructions: As directed- needs to be measured and sized sildenafil 100 mg Tablet 100 mg PO DAILY PRN (Reason: as needed) Rx Instructions: administer 30 minutes to 4 hours before activity rivastigmine 4.6 mg/24 hour patch 24 hour 1 patch transdermal DAILY Qty: 30 3RF esomeprazole magnesium 20 mg capsule,delayed release(DR/EC) 20 mg PO QHS Qty: 90 3RF Rx Instructions: LAST REFILL UNTIL SEEN finasteride 5 mg tablet 5 mg PO QHS Qty: 90 3RF Rx Instructions: LAST REFILL UNTIL SEEN tamsulosin [Flomax] 0.4 mg capsule 0.4 mg PO DAILY Qty: 90 3RF Rx Instructions: LAST REFILL UNTIL SEEN sertraline 100 mg tablet 100 mg PO DAILY Qty: 90 3RF Rx Instructions: LAST REFILL UNTIL SEEN clonazepam 0.5 mg tablet 0.25 mg PO QHS Qty: 90 1RF Rx Instructions: administer 30 minutes before bedtime quetiapine [Seroquel] 25 mg tablet 25 mg PO BID Qty: 60 3RF levetiracetam [Keppra] 500 mg tablet 500 mg PO Q12H Qty: 60 5RF trazodone 50 mg tablet 75 mg PO DAILY Qty: 45 5RF Rx Instructions: LAST REFILL UNTIL SEEN melatonin 10 mg tablet 10 mg PO HS Qty: 30 0RF Rx Instructions: NEEDS APPOINTMENT FOR FURTHER REFILLS cyanocobalamin (vitamin B-12) 1,000 mcg capsule 1,000 mcg PO DAILY Qty: 30 0RF Rx Instructions: NEEDS APPOINTMENT FOR FURTHER REFILLS [place] 0.01 % drops 1 drp EACH EYE DAILY Qty: 2.5 0RF Rx Instructions: LAST REFILL UNTIL SEEN Follow-up/Referrals: UNKNOWN,DOCTOR [Primary Care Provider] - Time of Disposition: 02:24
[2024-03-05 02:17] VITALS: BP 158/88; PULSE 59; RESP 18; O2SAT 100
[2024-03-05 05:30] VITALS: BP 133/78; PULSE 60; RESP 18; O2SAT 99
--- NOTE | 2024-03-05 05:54 | PC.NURSE ---
Pt son called and stated that he will come and cone picker patient and take him back to facility
== END 2024-03-05 07:08 ==
PROVIDERS: Emergency Provider Emergency Medicine
DX: S00.81XA Abrasion of other part of head, initial encounter (principal); S90.512A Abrasion, left ankle, initial encounter; G31.83 Neurocognitive disorder with Lewy bodies; F02.818 Dementia in other diseases classified elsewhere, unspecified severity, with other behavioral disturbance; N40.0 Benign prostatic hyperplasia without lower urinary tract symptoms; Z66 Do not resuscitate; Z86.16 Personal history of COVID-19; Z85.828 Personal history of other malignant neoplasm of skin; K21.9 Gastro-esophageal reflux disease without esophagitis; W19.XXXA Unspecified fall, initial encounter
CPT/HCPCS: 36415; 70450; 72125; 73600; 80053; 85025; 93005; 99284

== ENCOUNTER 2024-06-24 10:03 | Emergency (ER) | payer MEDICARE, SELFPAY ==
--- NOTE | ~2024-06-24 | XR_ITS ---
EXAMINATION: XR chest 1V DATE: 06/24/2024 10:55 INDICATION: Weakness. TECHNIQUE: A single frontal view of the chest was obtained. COMPARISON: Chest single view 03/01/2023 FINDINGS: There is no pneumonia, pleural effusion, or pneumothorax. The heart size is normal. A calci fied right hilar lymph node is consistent with old granulomatous disease. IMPRESSION: 1. No acute cardiopulmonary disease. Reviewed, dictated and finalized at location A. N RESOURCES BENEFITS MANAGER
--- NOTE | ~2024-06-24 | CT_ITS ---
EXAMINATION: CT brain wo con DATE: 06/24/2024 10:59 INDICATION: Mental status change. TECHNIQUE: Computed tomography (CT) of the head was performed without intravenous contrast. The mA wa s adjusted according to patient size. Iterative reconstruction technique was employed. The dose-lengt h product was 1428.47 mGy-cm. COMPARISON: Head CT 03/05/2024 FINDINGS: There is no intracranial hemorrhage, acute infarction, or abnormal intracranial mass lesion . The ventricles are normal in size. There is mild mucosal thickening in the paranasal sinuses. The o rbits are normal. The mastoid air cells are normal. 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 IMPRESSION: 1. Normal brain. Reviewed, dictated and finalized at location A. L ROASTER IMPRESSION: 1. Normal brain.
[2024-06-24 10:07] VITALS: BP 119/69; PULSE 74; RESP 16; TEMP 37.2; O2SAT 98
[2024-06-24 10:15] VITALS: RESP 17; O2SAT 98
--- NOTE | 2024-06-24 10:16 | ECG_ITS ---
Test Date: 2024-06-24 10:28:25 Measurements Intervals [place] Rate: 69 P: -3 OK: 139 QRS: 6 QRSD: 100 T: 45 QT: 395 QTc: 425 Interpretive Statements SINUS RHYTHM INCOMPLETE RIGHT BUNDLE BRANCH BLOCK DELAYED PRECORDIAL R/S TRANSITION BASELINE ARTIFACT- I, II, III, AVR, AVL, AVF, V4-V6 BORDERLINE ECG Compared to ECG 03/05/2024 01:00:01 HEART RATE HAS INCREASED Electronically Signed On 06-24-2024 16:29:39 DATA VIRTUALIZATION CONSULTANT by Marco Romo D.O.
--- OUTSIDE RECORDS SUMMARY | 2024-06-24 10:20 | XMS_ITS | Clinical Summary ---
Author Organization [facility] [address] Address [address] [place] [address] Care Team Providers Care Tabulating Supervisor Name Role Phone Jose Angel Craven MD Primary Care Provider [phone] [phone] Allergies No known active allergies Medications finasteride (PROSCAR) 5 mg tablet Take 1 tablet (5 mg total) by mouth daily 03/15/[address] (NexIUM) 20 mg capsule Take 1 capsule (20 mg total) by mouth daily before breakfast Active sertraline (ZOLOFT) 100 mg tablet Take 1 tablet (100 mg total) by mouth daily 90 tablet 3 12/29/19 22 Active traZODone (DESYREL) 150 mg tablet ONE-HALF TAB (75MG) BY MOUTH AT BEDTIME FOR SLEEP 15 tablet 11 05/18/19 23 Active levETIRAcetam (KEPPRA) 500 mg tabletIndications :Spells of decreased attentiveness Take 1 tablet (500 mg total) by mouth 2 (two) times a day 60 tablet 11 03/21/20 23 Active melatonin 5 mg tablet Take 1 tablet (5 mg total) by mouth nightly Take with 10 mg melatonin for 15 mg total; increase ordered by C Gill and faxed to facility (facility pharmacy not known) Active melatonin 10 mg tablet Take 1 tablet (10 mg total) by mouth nightly Take with 5 mg melatonin for 15 mg total as ordered by C Gill and relayed to nursing facility Active clonazePAM (KlonoPIN) 0.5 mg tablet 11/08/19 24 Active rivastigmine (EXELON) 4.6 mg/[address] 4.6 mg on the skin daily 30 patch 4 04/10/20 24 Active Lumigan 0.01 % ophthalmic drops 03/04/20 22 025 Discontinued cyanocobalamin (Vitamin B-12) 1,000 mcg tablet 10/06/19 23 025 Discontinued Active Problems Patient Care Coordination No te Formatting of this note migh t be different from the original. Talked to Mr. Finney's daughter Es. She described episode of standing, walking a few steps, then slumping towards wall, shaking, nearly falling. She reports facility checked BP and it was low. Advised her to see PCP and check BP, especially orthostatics. We will get current med list and review- may need to decrease quetiapine. Problem Noted Date Diagnosed Date Seizure 06/11/2024 Overview (06/11/2024): An EEG done 03/2023 after a fall showed asymmetric slowing and some epileptiform discharges, so levetiracetam 500 mg bid was started, although unclear if the reported spells were epileptic (spells were hand shaking, crying, agitation, hitting head on the wall; he had low BP). These usually occurred when he was standing up or was taken out of the facility. He did not lose responsiveness. Assessment & Plan (06/11/2024 8:56 AM PORTFOLIO CONSULTANT): An EEG done 03/2023 after a fall showed asymmetric slowing and some epileptiform discharges, so levetiracetam 500 mg bid was started, although unclear if the reported spells were epileptic (spells were hand shaking, crying, agitation, hitting head on the wall; he had low BP). These usually occurred when he was standing up or was taken out of the facility. He did not lose responsiveness. Plan: Continue Keppra/levetiracetam 500 mg BID Restlessness and agitation 03/07/2024 Assessment & Plan (06/11/2024 8:54 AM PORTFOLIO CONSULTANT): Sertraline/Zoloft 100 mg daily Sleeping difficulty 03/09/2022 Assessment & Plan (06/11/2024 8:53 AM PORTFOLIO CONSULTANT): Trazodone 150 mg HS RBD (REM behavioral disorder) 03/09/2022 Assessment & Plan (06/11/2024 8:53 AM PORTFOLIO CONSULTANT): Clonazepam 0.5 mg HS, melatonin 15 mg HS Lewy body dementia 03/09/2022 Assessment & Plan (06/11/2024 8:52 AM PORTFOLIO CONSULTANT): Onset 2019 Lewy Body Dementia: Rivastigmine/Exelon 4.6 mg TD, family wanted to keep the dose at 4.6, this seemed to help with behaviors as well. 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 03/09/2022 05/09/2023 Dementia with Lewy bodies (CODE) 06/10/2020 05/09/2023 Encounters Date Type Department Care Team Description 06/11/2024 8:15 AM PORTFOLIO CONSULTANT Office Visit [facility] [address] 6[address] [place] [address] Keturah Gill NP RBD (REM behavioral disorder) (Primary Dx); Lewy body dementia with other behavioral disturbance, unspecified dementia severity (HCC); Sleeping difficulty; Visual hallucination; Restlessness and agitation; Seizure (HCC) 04/09/2024 Telephone [facility] [facility] [address] [place] [address] Surendra Gutierres Medication Problem 04/06/2024 Telephone [facility] [address] [place] [address] Katharine Matos, A Medication from Last 3 Months Social History Tobacco Use Types Packs/Day Years Used Date Smoking Tobacco: Former Cigarettes Smokeless Tobacco: Never Tobacco Cessation:Counseling Given: Not Answered Sex and Gender Information Value Date Recorded Sex Assigned at Not on file Legal Sex Male 4:33 AM PORTFOLIO CONSULTANT Gender Identity Male 02/21/2023 10:34 AM CDT Sexual Orientation Not on file Obstetrics History Last Filed Vital Signs Vital Sign Reading Time Taken Comments Blood Pressure 118/77 06/11/2024 8:15 AM PORTFOLIO CONSULTANT Pulse 83 06/11/2024 8:15 AM PORTFOLIO CONSULTANT Temperature 36.6 C (97.9 F) 06/11/2024 8:15 AM PORTFOLIO CONSULTANT Respiratory Rate - - Oxygen Saturation 98% 06/11/2024 8:15 AM PORTFOLIO CONSULTANT Inhaled Oxygen Concentration - - Weight 81 kg (178 lb 8 oz) 06/11/2024 8:15 AM CS T Height 190.5 cm (6' 3 ) 06/11/2024 8:15 AM PORTFOLIO CONSULTANT Body Mass Index 22.31 06/11/2024 8:15 AM PORTFOLIO CONSULTANT Plan of Treatment Health Maintenance Due Date Last Done Comments Colon Cancer Screening-Colonoscopy 1952 Depression Screening 1952 Fall Risk Assessment 1952 Hepatitis C Screening 1952 Hepatitis B Screening 1970 Abdominal Aortic Aneurysm (A AA) Screen 2017 Well Visit 65+ 2017 Pneumococcal vaccine 65+ (2 of 2 - PPSV23) 01/12/2020 01/11/2019 Influenza Vaccine (#1) 2024 3, 02/06/2020, 01/11/2019, Additional history exists DTaP/Tdap/Td Vaccine (2 - Td or Tdap) 01/11/2029 01/11/2019 Zoster Vaccine Completed 12/28/2018, 10/28/2018 Insurance [employer] CHOICE MEDICARE PPO [employer] MEDICARE HMO Care Teams Tabulating Supervisor Relationship Specialty Start Date End Date Jose Angel Craven MD PCP - General Family Medicine 06/18/20
--- OUTSIDE RECORDS SUMMARY | 2024-06-24 10:20 | XMS_ITS | Encounter Summary ---
Author Organization [facility] Address [address] [place] [address] Phone Care Team Providers Care Accounts Payable Accountant Name Role Phone Jose Angel Craven MD Primary Care Provider [phone] [phone] Encounter Details Date Type Department Care Team (Latest Contact Info) Description 07/18/2020 Orders Only [facility] Scanning, Provider Social History Tobacco Use Types Packs/Day Years Used Date Smoking Tobacco: Never Sex and Gender Information Value Date Recorded Sex Assigned at Not on file Legal Sex Male 4:33 AM COVER REMOVER Gender Identity Male 02/21/2023 10:34 AM CDT Sexual Orientation Not on file documented as of this encounter Plan of Treatment Not on file documented as of this encounter Procedures Procedure Name Priority Date/Time Associated Diagnosis Comments SCAN - RADIOLOGY/IMAGING 07/18/2020 4:32 PM CDT documented in this encounter Results * SCAN - RADIOLOGY/IMAGING (07/18/2020 4:32 PM CDT) Anatomical Region Laterality Modality Other us Provider Scanning Final Result documented in this encounter Visit Diagnoses Not on filedocumented in this encounter Care Teams Accounts Payable Accountant Relationship Specialty Start Date End Date Jose Angel Craven MD PCP - General Family Medicine 06/18/20 documented as of this encounter
--- OUTSIDE RECORDS SUMMARY | 2024-06-24 10:20 | XMS_ITS | Referral Summary ---
Author Organization [facility] [address] Address [address] [place] [address] Care Team Providers Care Manager Cosmetic Name Role Phone Jose Angel Craven MD Primary Care Provider [phone] [phone] Encounters Date Type Department Care Team Description 06/11/2024 8:15 AM OPTICIAN APPRENTICE DISPENSING Office Visit [facility] [address] [facility] [facility] 6th [address] [place] [address] Keturah Gill NP RBD (REM behavioral disorder) (Primary Dx); Lewy body dementia with other behavioral disturbance, unspecified dementia severity (HCC); Sleeping difficulty; Visual hallucination; Restlessness and agitation; Seizure (HCC) 04/09/2024 Telephone [facility] [address] [place] [address] First Floor [address] [place] [address] Surendra Gutierres Medication Problem 04/06/2024 Telephone [facility] [address] [place] [address] Floor [address] [place] [address] Katharine Matos RMA Medication from Last 3 Months Allergies No known active allergies Medications finasteride [...] responsiveness. Assessment & Plan (06/11/2024 8:56 AM OPTICIAN APPRENTICE DISPENSING): An EEG done 03/2023 after a fall [...] 03/07/2024 Assessment & Plan (06/11/2024 8:54 AM OPTICIAN APPRENTICE DISPENSING): Sertraline/Zoloft 100 mg daily Sleeping difficulty 03/09/2022 Assessment & Plan (06/11/2024 8:53 AM OPTICIAN APPRENTICE DISPENSING): Trazodone 150 mg HS RBD (REM behavioral disorder) 03/09/2022 Assessment & Plan (06/11/2024 8:53 AM OPTICIAN APPRENTICE DISPENSING): Clonazepam 0.5 mg HS, melatonin 15 mg HS Lewy body dementia 03/09/2022 Assessment & Plan (06/11/2024 8:52 AM OPTICIAN APPRENTICE DISPENSING): Onset 2019 Lewy Body Dementia: Rivastigmine/Exelon 4.6 mg TD, family wanted to keep the dose at 4.6, this seemed to help with behaviors as well. 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 03/09/2022 05/09/2023 Dementia with Lewy bodies (CODE) 06/10/2020 05/09/2023 Social History Tobacco Use Types Packs/Day Years Used Date Smoking Tobacco: Former Cigarettes Smokeless Tobacco: Never Tobacco Cessation:Counseling Given: Not Answered Sex and Gender Information Value Date Recorded Sex Assigned at Not on file Legal Sex Male 4:33 AM OPTICIAN APPRENTICE DISPENSING Gender Identity Male 02/21/2023 10:34 AM CDT Sexual Orientation Not on file Last Filed Vital Signs Vital Sign Reading Time Taken Comments Blood Pressure 118/77 06/11/2024 8:15 AM OPTICIAN APPRENTICE DISPENSING Pulse 83 06/11/2024 8:15 AM OPTICIAN APPRENTICE DISPENSING Temperature 36.6 C (97.9 F) 06/11/2024 8:15 AM OPTICIAN APPRENTICE DISPENSING Respiratory Rate - - Oxygen Saturation 98% 06/11/2024 8:15 AM OPTICIAN APPRENTICE DISPENSING Inhaled Oxygen Concentration - - Weight 81 kg (178 lb 8 oz) 06/11/2024 8:15 AM CS T Height 190.5 cm (6' 3 ) 06/11/2024 8:15 AM OPTICIAN APPRENTICE DISPENSING Body Mass Index 22.31 06/11/2024 8:15 AM OPTICIAN APPRENTICE DISPENSING Plan of Treatment Not on file Insurance [employer] CHOICE MEDICARE PPO HU[employer]NA MEDICARE HMO HU[employer]NA MEDICARE HMO Care Teams Manager Cosmetic Relationship Specialty Start Date End Date Jose Angel Craven MD PCP - General Family Medicine 06/18/20
--- NOTE | 2024-06-24 10:29 | ED.GENADULT ---
HPI - General Adult General Chief complaint: Unspecified Stated complaint: UNSTEADY GAIT Time Seen by Provider: 06/24/24 10:11 History of Present Illness HPI narrative: Patient 73-year-old gentleman who presents emergency department with chief complaint altered mental status and unsteady gait. The patient is from a local memory care unit has history of Lewy body dementia. Per the facility the patient was acting differently the son reports that patient has had some falls recently the facility and reported to him he was having difficulty with walking. Patient currently has no complaints stating only that there are little green and red elf's in the room. Per the family the patient is acting his normal self at this time Related Data Home Medications ?Medication ?Instructions ?Recorded ?Confirmed ?Last Taken ?Type sildenafil 100 mg tablet 100 mg PO DAILY PRN as needed 03/01/23 03/01/23 Unknown History Allergies Allergy/AdvReac Type Severity Reaction Status Date / Time No Known Allergies Allergy Verified 03/04/24 23:48 Review of Systems Review of Systems: A 10 system review of systems was completed on the patient and is negative except for what is stated in the HPI. Nursing and ancillary documentation was reviewed. 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 Code status: Do not resuscitate. Smoking status: Former smoker Alcohol intake: never Substance use: current Substance use type: does not use Lack of Transportation: No Lack of Food: Never True Current Housing: I Have Housing Concerned About Future Housing: No Difficulty Paying Gas/Electric Bills: No Difficulty Paying for Meds: No Currently Unemployed: No Education: Master's Degree or Higher Additional living arrangements comments: [facility]. Additional occupation/education comments: Retired. Spiritual care concerns: No Exam Narrative: GENERAL: Well-appearing, well-nourished, and in no acute distress. HEAD: Normocephalic, atraumatic. EYES: PERRLA and EOMI. ENT: Nares clear, no rhinorrhea or epistaxis. Mucous membranes moist. NECK: Supple. CHEST: Clear to auscultation. No respiratory distress. HEART: Regular rate and rhythm. No murmur heard. Normal peripheral pulses. ABDOMEN: Soft, nontender, nondistended, normal active bowel sounds. EXTREMITIES: Normal range of motion. No edema. SKIN: Warm, dry, no rash. NEURO: No focal deficits. Alert and oriented to baseline profoundly confused. PSYCH: Normal mood and affect. Course Vital Signs Vital signs: Vital Signs Temperature 37.2 C 06/24/24 10:07 Pulse Rate 74 06/24/24 10:07 Respiratory Rate 16 06/24/24 10:07 Blood Pressure 119/69 06/24/24 10:07 Pulse Oximetry 98 06/24/24 10:07 Oxygen Delivery Room Air 06/24/24 10:07 Temperature 37.2 C 06/24/24 10:07 Pulse Rate 74 06/24/24 10:07 Respiratory Rate 17 06/24/24 10:15 Blood Pressure 119/69 06/24/24 10:07 Pulse Oximetry 98 06/24/24 10:15 Oxygen Delivery Room Air 06/24/24 10:07 Medical Decision Making [facility] Narrative Medical decision making narrative: Differential diagnosis includes CVA, intracranial hemorrhage, metabolic encephalopathy, infection, COVID, flu, RSV Laboratory studies were obtained on the patient showed no significant abnormalities COVID flu and RSV were negative CT head showed no acute abnormality Chest x-ray showed no focal infiltrate Patient ambulated without difficulty improved family he is ambulating is normal status Urinalysis showed no evidence UTI Vital Signs Vital Signs: Vital Signs Temperature 37.2 C 06/24/24 10:07 Pulse Rate 74 06/24/24 10:07 Respiratory Rate 16 06/24/24 10:07 Blood Pressure 119/69 06/24/24 10:07 Pulse Oximetry 98 06/24/24 10:07 Oxygen Delivery Room Air 06/24/24 10:07 Temperature 37.2 C 06/24/24 10:07 Pulse Rate 74 06/24/24 10:07 Respiratory Rate 17 06/24/24 10:15 Blood Pressure 119/69 06/24/24 10:07 Pulse Oximetry 98 06/24/24 10:15 Oxygen Delivery Room Air 06/24/24 10:07 Lab Data 06/24/24 10:30 06/24/24 10:30 Labs: Lab Results 06/24/24 06/24/24 Range/Units 10:30 11:34 WBC 4.9 (4.5-10.0) K/mm3 RBC 4.81 (4.6-6.20) M/mm3 Hgb 15.3 (14.0-18.0) g/dL Hct 44.4 (42.0-52.0) % MCV 92.3 (80-100) fl MCH 31.8 (26-34) pg MCHC 34.5 (32-36) g/dl RDW 12.7 (11.5-14.5) % Plt Count 213 (150-375) k/mm3 MPV 9.3 (7.4-10.4) fl Immature Gran % (Auto) 0.2 (0-0.5) % Neut % (Auto) 74.4 H (45.5-73.1) % Lymph % (Auto) 18.9 (18.3-44.2) % [place] % (Auto) 5.5 (2.6-8.5) % Eos % (Auto) 0.4 (0-4.4) % Baso % (Auto) 0.6 (0.2-1.2) % Lymph # (Auto) 0.93 (0.9-3.2) K/mm3 [place] # (Auto) 0.3 (0.1-0.6) K/mm3 Eos # (Auto) 0.0 (0-0.3) K/mm3 Baso # (Auto) 0.0 (0.0-0.1) K/mm3 Abs Immat Gran (auto) 0.01 (0.00-0.031) K/mm3 Absolute Neuts (auto) 3.7 (1.3-6.7) K/mm3 Absolute Nucleated RBC 0.000 (0.0-0.012) K/mm3 Nucleated RBC % 0.0 (0.0-0.2) % PT 12.9 (11.1-14.7) Seconds INR 0.9 APTT 24.0 (22.3-36.8) Seconds Sodium 141 (137-145) mmol/L Potassium 3.9 (3.4-5.0) mmol/L Chloride 107 (98-107) mmol/L Carbon Dioxide 27 (22-30) mmol/L Anion Gap 7 (4-12) mmol/L BUN 19 (9-20) mg/dL Creatinine 0.94 (0.7-1.3) mg/dL Estim Creat Clear Calc 69 ml/min Estimated GFR > 60 (59 - ) Glucose 75 (65-110) mg/dL Lactic Acid 1.9 (0.7-2.0) mmol/L Calcium 8.8 (8.4-10.2) mg/dL Magnesium 2.3 (1.6-2.3) mg/dL Total Bilirubin 1.4 H (0.2-1.3) mg/dL AST 30 (17-59) U/L ALT 29 (6-50) U/L Alkaline Phosphatase 63 (38-126) U/L Troponin I < 0.012 (0.000-0.034) ng/mL Total Protein 6.0 L (6.3-8.2) g/dL Albumin 3.7 (3.5-5.1) g/dL Lipase 101 (23-300) U/L Urine Color Yellow (Yellow) Urine Appearance Clear (Clear) Urine pH 7.0 (5.0-9.0) Ur Specific [place] 1.020 (1.001-1.035) Urine Protein Negative (Negative) mg/dL Urine Glucose (UA) Negative (Negative) mg/dL Urine Ketones Negative (Negative) mg/dL Ur Blood (Man) Negative (Negative) Urine Nitrate Negative (Negative) Urine Bilirubin Negative (Negative) Urine Urobilinogen 1.0 (<2.0) mg/dL Leukocyte Esterase Rfl Negative (Negative) GUILLAUME/UL Influenza A (RT-PCR) Negative (Negative) Influenza B (RT-PCR) Negative (Negative) RSV (RT-PCR) Negative (Negative) SARS-CoV-2 RNA (RT-PCR) Negative (Negative) Discharge Plan Discharge Clinical Impression: LBD (Lewy body dementia), Encounter for medical screening examination Patient Disposition: NH Half-Way/Asst Living Condition: Stable Instructions: Antibiotic Form, Weakness (ED) Patient Language: Sinhala Prescriptions: No Action (DME) Compression support stockings See Rx Instructions .Route .MEDSUPPLY Qty: 1 0RF Rx Instructions: As directed- needs to be measured and sized sildenafil 100 mg Tablet 100 mg PO DAILY PRN (Reason: as needed) Rx Instructions: administer 30 minutes to 4 hours before activity rivastigmine 4.6 mg/24 hour patch 24 hour 1 patch transdermal DAILY Qty: 30 3RF esomeprazole magnesium 20 mg capsule,delayed release(DR/EC) 20 mg PO QHS Qty: 90 3RF Rx Instructions: LAST REFILL UNTIL SEEN finasteride 5 mg tablet 5 mg PO QHS Qty: 90 3RF Rx Instructions: LAST REFILL UNTIL SEEN tamsulosin [Flomax] 0.4 mg capsule 0.4 mg PO DAILY Qty: 90 3RF Rx Instructions: LAST REFILL UNTIL SEEN sertraline 100 mg tablet 100 mg PO DAILY Qty: 90 3RF Rx Instructions: LAST REFILL UNTIL SEEN clonazepam 0.5 mg tablet 0.25 mg PO QHS Qty: 90 1RF Rx Instructions: administer 30 minutes before bedtime quetiapine [Seroquel] 25 mg tablet 25 mg PO BID Qty: 60 3RF levetiracetam [Keppra] 500 mg tablet 500 mg PO Q12H Qty: 60 5RF trazodone 50 mg tablet 75 mg PO DAILY Qty: 45 5RF Rx Instructions: LAST REFILL UNTIL SEEN melatonin 10 mg tablet 10 mg PO HS Qty: 30 0RF Rx Instructions: NEEDS APPOINTMENT FOR FURTHER REFILLS cyanocobalamin (vitamin B-12) 1,000 mcg capsule 1,000 mcg PO DAILY Qty: 30 0RF Rx Instructions: NEEDS APPOINTMENT FOR FURTHER REFILLS Lumigan 0.01 % drops 1 drp EACH EYE DAILY Qty: 2.5 0RF Rx Instructions: LAST REFILL UNTIL SEEN Follow-up/Referrals: [place],M[facility] Jin DO [Primary Care Provider] - Time of Disposition: 12:22
[2024-06-24 10:36] LABS: Basophils Percent Auto 0.6 % (0.2-1.2); Eosinophils Percent Auto 0.4 % (0-4.4); Hematocrit 44.4 % (42.0-52.0); Hemoglobin 15.3 g/dL (14.0-18.0); Immature Granulocyte Absolute 0.01 K/mm3 (0.00-0.031); Immature Granulocyte Percent A 0.2 % (0-0.5); Lymphocytes Absolute Auto 0.93 K/mm3 (0.9-3.2); Lymphocytes Percent Auto 18.9 % (18.3-44.2); Mean Corpuscular HGB Conc 34.5 g/dl (32-36); Mean Corpuscular Hemoglobin 31.8 pg (26-34); Mean Corpuscular Volume 92.3 fl (80-100); Mean Platelet Volume 9.3 fl (7.4-10.4); Monocytes Absolute Auto 0.3 K/mm3 (0.1-0.6); Monocytes Percent Auto 5.5 % (2.6-8.5); Neutrophils Absolute Auto 3.7 K/mm3 (1.3-6.7); Neutrophils Percent Auto 74.4 % (45.5-73.1); Platelet Count Result 213 k/mm3 (150-375); Red Blood Count 4.81 M/mm3 (4.6-6.20); Red Cell Distribution Width 12.7 % (11.5-14.5); White Blood Count 4.9 K/mm3 (4.5-10.0)
[2024-06-24 10:47] LABS: Alanine Aminotransferase 29 U/L (6-50); Albumin Level 3.7 g/dL (3.5-5.1); Alkaline Phosphatase 63 U/L (38-126); Anion Gap 7 mmol/L (4-12); Aspartate Amino Transferase 30 U/L (17-59); Bilirubin,Total 1.4 mg/dL (0.2-1.3); Blood Urea Nitrogen 19 mg/dL (9-20); Calcium 8.8 mg/dL (8.4-10.2); Carbon Dioxide 27 mmol/L (22-30); Chloride 107 mmol/L (98-107); Estimated CRCL calculation 69 ml/min; Estimated Glomerular Filt Rate > 60; Glucose 75 mg/dL (65-110); Lactic Acid Reflex 1.9 mmol/L (0.7-2.0); Lipase 101 U/L (23-300); Magnesium 2.3 mg/dL (1.6-2.3); Potassium 3.9 mmol/L (3.4-5.0); Sodium 141 mmol/L (137-145)
[2024-06-24 10:48] LABS: INR 0.9; Prothrombin Time 12.9 Seconds (11.1-14.7)
[2024-06-24 10:58] LABS: Troponin I < 0.012 ng/mL (0.000-0.034)
[2024-06-24 11:12] LABS: Influenza A QL RT-PCR Negative (Negative); Influenza B QL RT-PCR Negative (Negative); RSV RNA, RT-PCR Negative (Negative); SARS-CoV-2 RNA PCR Negative (Negative)
[2024-06-24 11:45] LABS: Add Urine Microscopic? NO; Appearance Urine Clear (Clear); Bilirubin Urine Negative (Negative); Blood Urine Negative (Negative); Color Urine Yellow (Yellow); Glucose Urine UA Negative (Negative); Ketones Urine Negative (Negative); Leukocyte Esterase Ur Negative LEU/UL (Negative); Nitrate Urine Negative (Negative); Protein Urine Negative (Negative)
[2024-06-24 12:41] VITALS: BP 122/78; PULSE 72; RESP 17; O2SAT 100
== END 2024-06-24 12:43 ==
PROVIDERS: Emergency Provider Emergency Medicine; PCP Internal Medicine
DX: G31.83 Neurocognitive disorder with Lewy bodies (principal); F02.818 Dementia in other diseases classified elsewhere, unspecified severity, with other behavioral disturbance; Z20.822 Contact with and (suspected) exposure to COVID-19; K21.9 Gastro-esophageal reflux disease without esophagitis; N40.0 Benign prostatic hyperplasia without lower urinary tract symptoms; Z66 Do not resuscitate; Z86.16 Personal history of COVID-19; Z85.828 Personal history of other malignant neoplasm of skin; Z87.891 Personal history of nicotine dependence; Z79.899 Other long term (current) drug therapy; I45.10 Unspecified right bundle-branch block
CPT/HCPCS: 36415; 70450; 71045; 80053; 81003; 83605; 83690; 83735; 84484; 85025; 85610; 85730; 87637; 93005; 99284